=== PATIENT | female | born 1930 | race Caucasian/White ===

== ENCOUNTER 2017-06-24 14:02 | Emergency (ER) | payer MEDICARE, OTHER ==
[2017-06-24] MEDS ORDERED: ONDANSETRON HCL INJ/PF 4 MG/2 ML SDV IV ONE ×2 (14:32→18:55)
[2017-06-24] MEDS ORDERED: NORMAL SALINE 500 ML IV ONE (14:35)
--- NOTE | 2017-06-24 14:38 | ER Document Report ---
ED Medical Screen (RME) - General Chief Complaint: Abdominal Pain Stated Complaint: VOMITING Time Seen by Provider: 06/24/17 14:31 Mode of Arrival: Ambulatory Information source: Patient TRAVEL OUTSIDE OF THE [place] IN LAST 30 DAYS: No - HPI Notes: 06/24/17 14:36 Patient presents for diffuse abdominal pain. She states that for the past few weeks she has had abdominal pain that started in the left lower quadrant and then gradually became diffuse. She states it has been intolerable in the last week. It is associated with copious amounts of vomiting today as well as diarrhea. She states that she did see her primary medical doctor Wednesday and put her on amoxicillin for diverticulitis. Patient does not have a history of this in the past. Abdominal surgeries include appendectomy and hysterectomy. Patient has also had diarrhea for the past week. She is on prednisone occasionally for her arthritis and she states that she just stopped approximately 1 week ago. - Related Data Allergies/Adverse Reactions: aspirin Allergy (Verified 06/24/17 14:04) Past Medical History - Social History Chew tobacco use (# tins/day): No Frequency of alcohol use: None Drug Abuse: None - Past Medical History Cardiac Medical History: Reports: Hx Atrial Fibrillation, Hx Hypertension Renal/ Medical History: Denies: Hx Peritoneal Dialysis Past Surgical History: Reports: Hx Hysterectomy, Hx Pacemaker Physical Exam - Vital signs Vitals: Temp Pulse Resp BP Pulse Ox 97.8 F 64 16 159/59 H 96 06/24/17 14:08 06/24/17 14:08 06/24/17 14:08 06/24/17 14:08 06/24/17 14:08 Course - Vital Signs Vital signs: Temp Pulse Resp BP Pulse Ox 97.8 F 64 16 159/59 H 96 06/24/17 14:08 06/24/17 14:08 06/24/17 14:08 06/24/17 14:08 06/24/17 14:08
[2017-06-24 15:22] LABS: HEMATOCRIT 39.8 % (36.0-47.0); HEMOGLOBIN 13.2 g/dL (12.0-15.5); MEAN CORPUSCULAR HEMOGLOBIN 30.6 pg (27.0-33.4); MEAN CORPUSCULAR HGB CONC 33.2 g/dL (32.0-36.0); MEAN CORPUSCULAR VOLUME 92 fl (80-97); PLATELET COUNT 261 10^3/uL (150-450); RED BLOOD COUNT 4.32 10^6/uL (3.72-5.28); RED CELL DISTRIBUTION WIDTH 14.1 % (11.5-14.0); WHITE BLOOD COUNT 13.6 10^3/uL (4.0-10.5)
[2017-06-24 15:32] LABS: ALANINE AMINOTRANSFERASE 30 U/L (9-52); ALBUMIN 4.1 g/dL (3.5-5.0); ALKALINE PHOSPHATASE 74 U/L (38-126); ANION GAP 11 (5-19); ASPARTATE AMINO TRANSFERASE 24 U/L (14-36); BILIRUBIN,DIRECT 0.4 mg/dL (0.0-0.4); BILIRUBIN,TOTAL 0.5 mg/dL (0.2-1.3); BLOOD UREA NITROGEN 17 mg/dL (7-20); CALCIUM 9.1 mg/dL (8.4-10.2); CARBON DIOXIDE 26 mmol/L (22-30); CHLORIDE 104 mmol/L (98-107); GLUCOSE 109 mg/dL (75-110); SODIUM 141.3 mmol/L (137-145); TOTAL PROTEIN 6.9 g/dL (6.3-8.2)
[2017-06-24 15:47] LABS: ABSOLUTE LYMPHOCYTES# (MANUAL) 0.5 10^3/uL (0.5-4.7); BAND NEUTROPHILS % (MANUAL) 2 % (3-5); BASOPHILS % (MANUAL) 0 % (0-2); EOSINOPHILS % (MANUAL) 1 % (0-6); LYMPHOCYTES % (MANUAL) 4 % (13-45); MONOCYTES % (MANUAL) 7 % (3-13); SEGMENTED NEUTROPHILS % (MAN) 86 % (42-78); TOTAL CELLS COUNTED 100
[2017-06-24 15:48] LABS: ANISOCYTOSIS SLIGHT; PLATELET COMMENT ADEQUATE; PLATELET LARGE PRESENT; TOXIC VACUOLATION PRESENT
--- NOTE | 2017-06-24 17:16 | RADIOLOGY REPORT (SQ) ---
EXAM DESCRIPTION: CT ABD/PELVIS WITH IV ONLY COMPLETED DATE/TIME: 06/24/2017 4:52 pm REASON FOR STUDY: abd pain COMPARISON: None. TECHNIQUE: CT scan of the abdomen and pelvis performed using helical scanning technique with dynamic intravenous contrast injection. No oral contrast. Images reviewed with lung, soft tissue, and bone windows. Reconstructed coronal and sagittal MPR images reviewed. Delayed images for evaluation of the urinary system also acquired. All images stored on PACS. All CT scanners at this facility use dose modulation, iterative reconstruction, and/or weight based d osing when appropriate to reduce radiation dose to as low as reasonably achievable (ALARA). [facility]: Dose Right [facility]: CareDose [facility]: Dose Right [facility]: Teradose 4D [facility]: BOARDZ CONTRAST TYPE AND DOSE: contrast/concentration: Isovue 370.00 mg/ml; Total Contrast Delivered: 64.0 ml; Total Saline Delivered: 40.0 ml RENAL FUNCTION: Creatinine: 0.7 RADIATION DOSE: CT Rad equipment meets quality standard of care and radiation dose reduction techniq ues were employed. CTDIvol: 7.4 - 10.4 mGy. DLP: 850 mGy-cm.. LIMITATIONS: None. FINDINGS: LOWER CHEST: Consolidation within the lingula. Acinar infiltrate right middle lobe. Pace r leads in place. LIVER: No abnormality seen. SPLEEN: Accessory splenic tissue. No abnormality seen. PANCREAS: No abnormality seen. GALLBLADDER: No abnormality seen. ADRENAL GLANDS: No significant masses or asymmetry. RIGHT KIDNEY AND URETER: Cortical cyst medial lower pole right kidney. Tiny cortical cyst right kid virgen. No significant calcifications. No hydronephrosis or hydroureter. LEFT KIDNEY AND URETER: No solid masses. No significant calcifications. No hydronephrosis or hydr oureter. AORTA AND VESSELS: Atherosclerotic change of the abdominal aorta. Atherosclerotic change at origin o f celiac artery. RETROPERITONEUM: No retroperitoneal adenopathy, hemorrhage or masses. BOWEL AND PERITONEAL CAVITY: Diverticulosis. There is evidence of fluid within nondistended loops o f small bowel and within the colon. The possibility of an enteritis cannot be excluded. Clinical co rrelation would be needed. APPENDIX: Status post appendectomy. PELVIS: Status post hysterectomy. What No mass. No free fluid. Normal bladder. ABDOMINAL WALL: Umbilical hernia containing fat. BONES: Lumbar spondylosis with degenerative disc disease at L5-S1 degenerative anterolisthesis of L4 on L5. Lumbar scoliosis convex right. IMPRESSION: 1. There is evidence of air-fluid levels within nondistended loops of large and small b owel. The possibility of enteritis is not excluded. Cortical cysts of the right kidney. 2. Consol idation within the lingula. Acinar in infiltrates right middle lobe. TECHNICAL DOCUMENTATION: JOB ID: [id number] SC-[id number] Quality ID # [id number]: Final reports with documentation of one or more dose reduction techniques (e.g., Au tomated exposure control, adjustment of the mA and/or kV according to patient size, use of iterative reconstruction technique) 2010 [employer]- All Rights Reserved
[2017-06-24] MEDS ORDERED: DICYCLOMINE HCL INJ 20 MG/2 ML AMPULE IM ONE (18:12)
[2017-06-24] MEDS ORDERED: ONDANSETRON ODT 4 MG TAB (6 TAB/ER DISP) PO PRN (20:04)
--- NOTE | 2017-06-24 20:08 | ER Document Report ---
ED General - General Chief Complaint: Abdominal Pain Stated Complaint: VOMITING Time Seen by Provider: 06/24/17 14:31 Mode of Arrival: Ambulatory TRAVEL OUTSIDE OF THE [place] IN LAST 30 DAYS: No - HPI Patient complains to provider of: Abdominal pain nausea vomiting Notes: Patient coming in for abdominal pain ongoing for the last 2 weeks. Patient states saw PCP on Wednesday of started on Augmentin for diverticulosis. Patient states today started having nausea vomiting states her pain is burning patient points to the outside rim of her abdomen stating that is her colon. Denies any fevers chills - Related Data Allergies/Adverse Reactions: aspirin Allergy (Verified 06/24/17 14:04) Past Medical History - General Information source: Patient - Social History Smoking Status: Never Smoker Chew tobacco use (# tins/day): No Frequency of alcohol use: None Drug Abuse: None Family History: Reviewed & Not Pertinent Patient has suicidal ideation: No Patient has homicidal ideation: No - Past Medical History Cardiac Medical History: Reports: Hx Atrial Fibrillation, Hx Hypertension Renal/ Medical History: Denies: Hx Peritoneal Dialysis Past Surgical History: Reports: Hx Hysterectomy, Hx Pacemaker Review of Systems - Review of Systems Constitutional: No symptoms reported EENT: No symptoms reported Cardiovascular: No symptoms reported Respiratory: No symptoms reported Gastrointestinal: Abdominal pain, Diarrhea, Nausea, Vomiting Genitourinary: No symptoms reported Female Genitourinary: No symptoms reported Musculoskeletal: No symptoms reported Skin: No symptoms reported Hematologic/Lymphatic: No symptoms reported Neurological/Psychological: No symptoms reported -: Yes All other systems reviewed and negative Physical Exam - Vital signs Vitals: Temp Pulse Resp BP Pulse Ox 97.8 F 64 16 159/59 H 96 06/24/17 14:08 06/24/17 14:08 06/24/17 14:08 06/24/17 14:08 06/24/17 14:08 Interpretation: Normal - General General appearance: Appears well, Alert - HEENT Head: Normocephalic, Atraumatic Eyes: Normal Pupils: PERRL - Respiratory Respiratory status: No respiratory distress Chest status: Nontender Breath sounds: Normal Chest palpation: Normal - Cardiovascular Rhythm: Regular Heart sounds: Normal auscultation Murmur: No - Abdominal Inspection: Normal Distension: No distension Bowel sounds: Normal Tenderness: Tender - Diffuse mild tenderness Organomegaly: No organomegaly - Back Back: Normal, Nontender - Extremities General upper extremity: Normal inspection, Nontender, Normal color, Normal ROM , Normal temperature General lower extremity: Normal inspection, Nontender, Normal color, Normal ROM , Normal temperature, Normal weight bearing. No: Chacorta's sign - Neurological Neuro grossly intact: Yes Cognition: Normal Orientation: AAOx4 [place] Coma Scale Eye Opening: Spontaneous [place] Coma Scale Verbal: Oriented Solange Coma Scale Motor: Obeys Commands Solange Coma Scale Total: 15 Speech: Normal Motor strength normal: LUE, RUE, LLE, RLE Sensory: Normal - Psychological Associated symptoms: Normal affect, Normal mood - Skin Skin Temperature: Warm Skin Moisture: Dry Skin Color: Normal Course - Re-evaluation Re-evalutation: 06/25/17 00:18 The patient presents with abdominal pain without signs of peritonitis or other life-threatening or serious etiology. The patient appears stable for discharge and has been instructed to return immediately if the symptoms worsen in any way , or in 8-12hr if not improved for re-evaluation. The patient has been instructed to return if the symptoms worsen or change in any way.Slight leukocytosis. Examination of the abdomen was benign however patient continued to complain of pain therefore lactic acid was drawn while anti-gas pending patient states her nausea has improved since given a p.o. challenge in the past. Patient of note did not have any nausea vomiting diarrhea while here in the ER and I witnessed. Anti-gas was negative. Discussed with the patient that I think her symptoms are all viral is at the CT scan does show enteritis. Do not think she needs any further antibiotics. Patient agrees with this at this time. Patient is concerned about her pain and is asking for hydrocodone for pain control. Splinted patient I would not provide any narcotics that I would give her Bentyl recommend Tylenol Motrin for her pain. Patient stated understanding did seem disappointed that she was not getting hydrocodone however agree with discharge home to follow-up with her PCP. - Vital Signs Vital signs: Temp Pulse Resp BP Pulse Ox 98.7 F 75 18 138/64 H 95 06/24/17 20:26 06/24/17 20:26 06/24/17 20:26 06/24/17 20:26 06/24/17 20:26 - Laboratory Result Diagrams: 06/24/17 15:02 06/24/17 15:02 Laboratory results interpreted by me: 06/24/17 15:02 WBC 13.6 H RDW 14.1 H Seg Neuts % (Manual) 86 H Band Neutrophils % 2 L Lymphocytes % (Manual) 4 L Abs Neuts (Manual) 12.0 H Discharge - Discharge Clinical Impression: Nausea vomiting and diarrhea Abdominal pain Qualifiers: Abdominal location: unspecified location Qualified Code(s): R10.9 - Unspecified abdominal pain Condition: Good Disposition: HOME, SELF-CARE Instructions: Abdominal Pain ([facility]), Gastroenteritis (adult) ([facility]) Additional Instructions: Your CAT scan does not show any signs of acute diverticulitis. Does show signs of any enteritis or gastroenteritis more likely this is a viral infection causing her nausea vomiting diarrhea. At this time do not see any need for antibiotics. Recommend taking the Zofran or Phenergan as prescribed for your nausea vomiting. Please be careful with the Phenergan as it may make you sleepy. Also recommend taking Tylenol Bentyl for your abdominal pain. Return to ER symptoms worsen follow-up with your primary care physician. Prescriptions: Dicyclomine HCl [Bentyl 20 mg Tablet] 20 mg PO QID #30 tablet Ondansetron [Zofran Odt] 4 mg PO Q6 PRN #30 tab.rapdis PRN Reason: For Nausea/Vomiting Promethazine HCl [Phenergan 25 mg Tablet] 25 mg PO Q6 #30 tablet Referrals: AARON HIGGINS MD [Primary Care Provider] - Follow up in 3-5 days
[2017-06-24 20:27] VITALS: BP 138/64
== END 2017-06-24 20:27 | disposition home or self-care (01) ==
LOC: ER 14:02
DX: R10.9 Unspecified abdominal pain (principal); R11.2 Nausea with vomiting, unspecified; R19.7 Diarrhea, unspecified; K57.90 Diverticulosis of intestine, part unspecified, without perforation or abscess without bleeding; Z79.899 Other long term (current) drug therapy
CPT/HCPCS: 96376; 99284; 96372; 96361; 96374; 36415; 83605; 85025; 80053; 74177; J0500; J2405; J7040; A9270

== ENCOUNTER → 2019-06-13 | Outpatient (CLI) | payer MEDICARE, OTHER | LOC: LAB 10:10 | PROVIDERS: ATTEND Internal Medicine Cardiovascular Disease | DX: R05 Cough (principal) | CPT/HCPCS: 87070; 87077; 87186; 87205 ==

== ENCOUNTER 2019-10-15 13:00 | Emergency (ER) | payer MEDICARE, OTHER ==
[2019-10-15 13:10] VITALS: BP 160/95
--- NOTE | 2019-10-15 13:17 | ER Document Report ---
ED Medical Screen (RME) - General Chief Complaint: Fall Stated Complaint: FALL,HEAD PAIN Time Seen by Provider: 10/15/19 13:09 Primary Care Provider: ALANNA MILNER MD [Primary Care Provider] - Follow up as needed Mode of Arrival: Wheelchair Information source: Patient Notes: 88-year-old female with history of head bleed and hypertension presents emergency department post fall. She reports she was in her 's office set up and possibly rolled her left ankle. She reports she fell possibly hitting her head on a drawer. Patient reports she had severe pain. She did take 7.5 hydrocodone immediately afterwards. Reports she still hurting pretty bad. Patient has some ecchymosis and swelling to the back of her right side of her scalp. She denies nausea vomiting. Patient is unsure if she went unconscious. She is answering all questions appropriately. She reports she had a head bleed approximately 5 years ago when she was on anticoagulants. She is not on anticoagulants at this time. I have greeted and performed a rapid initial assessment of this patient. A comprehensive ED assessment and evaluation of the patient, analysis of test results and completion of the medical decision making process will be conducted by additional ED providers. TRAVEL OUTSIDE OF THE [place] IN LAST 30 DAYS: No - Related Data Allergies/Adverse Reactions: aspirin Allergy (Verified 10/15/19 13:08) Past Medical History - Social History Chew tobacco use (# tins/day): No Frequency of alcohol use: None Drug Abuse: None - Past Medical History Cardiac Medical History: Reports: Hx Atrial Fibrillation, Hx Hypertension Renal/ Medical History: Denies: Hx Peritoneal Dialysis Past Surgical History: Reports: Hx Hysterectomy, Hx Pacemaker Physical Exam - Vital signs Vitals: Temp Pulse Resp BP Pulse Ox 97.6 F 63 16 160/95 H 95 10/15/19 13:06 10/15/19 13:06 10/15/19 13:06 10/15/19 13:06 10/15/19 13:06 Course - Vital Signs Vital signs: Temp Pulse Resp BP Pulse Ox 97.6 F 63 16 160/95 H 95 10/15/19 13:09 10/15/19 13:06 10/15/19 13:06 10/15/19 13:06 10/15/19 13:06 Doctor's Discharge - Discharge Referrals: ALANNA MILNER MD [Primary Care Provider] - Follow up as needed
--- NOTE | 2019-10-15 14:24 | RADIOLOGY REPORT (SQ) ---
EXAM DESCRIPTION: CT CERVICAL SPINE WITHOUT; CT HEAD WITHOUT IMAGES COMPLETED DATE/TIME: 10/15/2019 2:10 pm REASON FOR STUDY: fall , head injury; fall , head injury, unknown loc COMPARISON: See below. TECHNIQUE: Axial images acquired through the brain and cervical spine without intravenous contrast. Images reviewed with brain, subdural, lung, soft tissue and bone windows. Reconstructed coronal and sagittal MPR images reviewed. Images stored on PACS. All CT scanners at this facility use dose modulation, iterative reconstruction, and/or weight based d osing when appropriate to reduce radiation dose to as low as reasonably achievable (ALARA). [facility]: Dose Right [facility]: CareDose [facility]: Dose Right [facility]: Teradose 4D [facility]: [employer] RADIATION DOSE: CT Rad equipment meets quality standard of care and radiation dose reduction techniq ues were employed. CTDIvol: 9.3 mGy. DLP: 192 mGy-cm.; CT Rad equipment meets quality standard of car e and radiation dose reduction techniques were employed. CTDIvol: 53.2 mGy. DLP: 1070 mGy-cm. mGy. LIMITATIONS: None. FINDINGS: Brain 2013 comparison. Areas of mild right posterior scalp swelling/hematoma. No acute intracranial abnor mality. No hemorrhage or mass or shift or hydrocephalus. No fracture. Chronic left craniotomy gooden ges. Clear paranasal sinuses. Intact orbits. Cervical spine Mild multilevel slight degenerative anterolisthesis. Seen at C2-3 C4-5, C7-T1 and T1-T2. Multilevel disc disease, most pronounced at C5-6 and C6-7. Multilevel facet arthropathy also noted. No fractu re or worrisome bone lesion. Scarring in the lung apices. IMPRESSION: 1. No acute intracranial abnormality. 2. Degenerative cervical spine changes without fracture or suspected posttraumatic malalignment. TECHNICAL DOCUMENTATION: JOB ID: [id number] Quality ID # [id number]: Final reports with documentation of one or more dose reduction techniques (e.g., Au tomated exposure control, adjustment of the mA and/or kV according to patient size, use of iterative reconstruction technique) 2010 [employer]- All Rights Reserved Reading location - IP/workstation name: [email or web address]
--- NOTE | 2019-10-15 14:24 | RADIOLOGY REPORT (SQ) ---
EXAM DESCRIPTION: ANKLE LEFT COMPLETE IMAGES COMPLETED DATE/TIME: 10/15/2019 2:09 pm REASON FOR STUDY: fall pain COMPARISON: None. NUMBER OF VIEWS: Three views. TECHNIQUE: AP, lateral, and oblique radiographic images acquired of the left ankle. LIMITATIONS: None. FINDINGS: MINERALIZATION: Normal. BONES: No acute fracture or dislocation. No worrisome bone lesions. JOINTS: No effusions. SOFT TISSUES: No soft tissue swelling. No foreign body. OTHER: No other significant finding. IMPRESSION: NEGATIVE STUDY OF THE LEFT ANKLE. NO RADIOGRAPHIC EVIDENCE OF ACUTE INJURY. TECHNICAL DOCUMENTATION: JOB ID: [id number] 2010 [employer]- All Rights Reserved Reading location - IP/workstation name: [email or web address]
--- NOTE | 2019-10-15 14:52 | ER Document Report ---
ED Fall - General Chief Complaint: Fall Stated Complaint: FALL,HEAD PAIN Time Seen by Provider: 10/15/19 13:09 Primary Care Provider: ALANNA MILNER MD [NO LOCAL MD] - Follow up in 3-5 days (Call for an outpatient follow-up appointment.) Mode of Arrival: Wheelchair Information source: Patient Notes: 88-year-old female past medical history significant for arthritis, hypertension, subdural hematoma presents to the emergency room after sustaining a head and ankle injury. Patient states she was sitting in her 's office watching a holiness service on the computer when she went to stand up lost her balance twisted her left ankle fell backward and hit her head on a doorknob on the cabinet to the desk. She denies any loss of consciousness. Initially had a h eadache. Denied nausea, vomiting, states is able to walk on the ankle without difficulty. States she took her hydrocodone that is prescribed for her at the time. Patient was concerned as she has a large hematoma to her right posterior scalp and the previous subdural was on the left which required surgical intervention. States the subdural was 5 years ago and she has not had any complications since. TRAVEL OUTSIDE OF THE [place] IN LAST 30 DAYS: No - Related data Allergies/Adverse Reactions: aspirin Allergy (Verified 10/15/19 13:08) Past Medical History - General Information source: Patient - Social History Smoking Status: Never Smoker Chew tobacco use (# tins/day): No Frequency of alcohol use: None Drug Abuse: None Lives with: Family Family History: Reviewed & Not Pertinent Patient has homicidal ideation: No - Past Medical History Cardiac Medical History: Reports: Hx Atrial Fibrillation, Hx Hypertension Renal/ Medical History: Denies: Hx Peritoneal Dialysis Past Surgical History: Reports: Hx Hysterectomy, Hx Pacemaker Review of Systems - Review of Systems Constitutional: No symptoms reported EENT: No symptoms reported Cardiovascular: No symptoms reported Respiratory: No symptoms reported Gastrointestinal: No symptoms reported Musculoskeletal: Joint pain Skin: Other - Swelling Neurological/Psychological: Headaches -: Yes All other systems reviewed and negative Physical Exam - Vital signs Vitals: Temp Pulse Resp BP Pulse Ox 97.6 F 63 16 160/95 H 95 10/15/19 13:06 10/15/19 13:06 10/15/19 13:06 10/15/19 13:06 10/15/19 13:06 - General General appearance: Appears well, Alert In distress: Mild - HEENT Head: Normocephalic, Tenderness - Tenderness with a moderate size hematoma noted to the right posterior scalp.. No: Greer's sign, Racoon's eyes Eyes: Normal Pupils: PERRL Neck: Normal - Nontender to palpation over the cervical spine. Full range of motion without difficulty with flexion, extension, lateral movement to the C- spine. - Respiratory Respiratory status: No respiratory distress Chest status: Nontender Breath sounds: Normal Chest palpation: Normal - Cardiovascular Rhythm: Regular Heart sounds: Normal auscultation Murmur: No - Extremities Ankle: Nontender, Unable to bear weight, Other - There is moderate swelling noted to the left lateral malleolus. Painful range of motion with inversion of the left ankle nontender with flexion, extension, and eversion of the left ankle.. No: Limited ROM - Neurological Neuro grossly intact: Yes Cognition: Normal Orientation: AAOx4 Reading Coma Scale Eye Opening: Spontaneous Reading Coma Scale Verbal: Oriented Solange Coma Scale Motor: Obeys Commands Reading Coma Scale Total: 15 Speech: Normal Motor strength normal: LUE, RUE, LLE, RLE Sensory: Normal - Skin Skin Temperature: Warm Skin Moisture: Dry Skin Color: Normal Course - Re-evaluation Re-evalutation: 10/15/19 14:46 Patient is resting comfortably states her headache is almost completely resolved. She is neurovascularly neurologically intact, she is ambulatory with a steady gait. Reviewed CAT scan and x-ray results with patient. She was counseled on need to follow-up outpatient with her primary care physician within the next 2 days. Can continue with the hydrocodone as needed for pain. She was given strict return to the emergency room guidelines. Return for any new or worsening symptoms. All questions were answered. Patient verbalized understanding and agrees with plan of care. - Vital Signs Vital signs: Temp Pulse Resp BP Pulse Ox 97.6 F 63 16 160/95 H 95 10/15/19 13:09 10/15/19 13:06 10/15/19 13:06 10/15/19 13:06 10/15/19 13:06 - Diagnostic Test Radiology reviewed: Reports reviewed Discharge - Discharge Clinical Impression: Hematoma and contusion, Degenerative disc disease, cervical Head injury Qualifiers: Encounter type: initial encounter Qualified Code(s): S09.90XA - Unspecified injury of head, initial encounter Left ankle sprain Qualifiers: Encounter type: initial encounter Involved ligament of ankle: unspecified ligament Qualified Code(s): S93.402A - Sprain of unspecified ligament of left ankle, initial encounter Condition: Stable Disposition: HOME, SELF-CARE Instructions: Head Injury Precautions ([facility]), Scalp Hematoma ([facility]), Sprained Ankle ([facility]) Additional Instructions: You have likely sustained a concussion. If you had a CT scan done, it did not show any evidence of serious injury or bleeding. Symptoms to expect from a concussion include nausea, mild to moderate headache, difficulty concentrating or sleeping, and mild lightheadedness. These symptoms should improve over the next few days to weeks. Return to the emergency department or follow-up with your primary care doctor if your symptoms are not improving over this time. Signs of a more serious head injury include vomiting, severe headache, excessive sleepiness or confusion, and weakness or numbness in your face, arms or legs. Return immediately to the Emergency Department if you experience any of these more concerning symptoms. Rest, avoid strenuous physical or mental activity, and avoid activities that could potentially result in another head injury until all your symptoms from this head injury are completely resolved for at least 2-3 weeks. Your x-ray does not show any acute fracture. You have a sprained ankle. Keep the area elevated, apply ice 20 minutes every 2 hours, needed. Please return if you have worsening pain and swelling, fever greater than 101, you notice spreading redness from the area, or have any other symptoms that are concerning to you. Please follow-up with orthopedic surgery if your symptoms have not improved in the next 2-3 weeks. Referrals: ALANNA MILNER MD [NO LOCAL MD] - Follow up in 3-5 days (Call for an outpatient follow-up appointment.)
== END 2019-10-15 15:22 | disposition home or self-care (01) ==
LOC: ER 13:00
DX: S00.93XA Contusion of unspecified part of head, initial encounter (principal); S93.402A Sprain of unspecified ligament of left ankle, initial encounter; M50.30 Other cervical disc degeneration, unspecified cervical region; R51 Headache; W19.XXXA Unspecified fall, initial encounter; I10 Essential (primary) hypertension; Z88.8 Allergy status to other drugs, medicaments and biological substances; I48.91 Unspecified atrial fibrillation
CPT/HCPCS: 70450; 72125; 99284